=== PATIENT | female | born 1945 | race Caucasian/White ===

== ENCOUNTER → 2016-05-04 | Day surgery (SDC) | payer MEDICARE ==
[~2016-05-04] MED LIST: ACETAMINOPHEN PO; ADVAIR 500-501 EACH; ADVAIR 500-501 EACH IH; ADVAIR 500-501 EACH INH; ADVAIR 5001 DISK W/1 IH; ADVAIR 5001 DISK W/D PO; ADVIL200 M2; ALBUTEROL 0.5ML INH; ALBUTEROL MININEB INH; ALBUTEROL MININEB NEB; ALBUTEROL0.83 MG/ML; ALBUTEROL17 GM INH; ALBUTEROL17 GM PO; ALLERGY RELIEF25 MG PO; AMBIEN PO; AMITIZA24 MCG PO; AMLODIPINE BESYL5 MG PO; ASPIR-TRIN325 MG PO; ASPIRIN PO; ASPIRIN81 M2 PO; ASPIRIN81 MG PO; ASTELIN137 MCG INH; ATORVASTATIN CA40 MG PO; AUGMENTIN PO; AUGMENTIN875 M1 PO; AZITHROMYCIN250 MG PO; B COMPLEX1 TAB PO; B-122500 MCG SL; B-COMPLEX1 TAB PO; BACLOFEN10 MG PO; BD INSULIN; BENADRYL25 MG PO; CEFTIN500 MG PO; CENTRUM PO; CHLORTAB PO; CHLORTABS; CIPRO PO; CLOPIDOGREL75 MG PO; COATED ASPIRIN325 M1 PO; COENZYME Q10; COMBIVENT RESPIM4 GM IH; COMBIVENT14.7 GM INH; COREG3.125 MG PO; COZAAR100 MG PO; CRESTOR40 MG; CRESTOR40 MG PO; D-20002000 UNIT PO; DARVOCET-N 1001 TAB PO; DETROL LA PO; DETROL LA2 MG PO; DITROPAN PO; DITROPAN5 MG; DITROPAN5 MG PO; DOXEPIN HCL100 MG PO; DOXEPIN PO; DOXYCYCLINE HY100 M3 PO; DUONEB 2.5-0.5 M3 ML NEB; ENDOCET 5-3251 EACH PO; FAMOTIDINE PO; FISH OIL 1,2001 CAP; FISH OIL 1,2001 EAC2 PO; FISH OIL 1,2001 EACH PO; FISH OIL300 MG PO; FLAGYL PO; FLAX SEED OIL1000 M1; FLAX SEED OIL1000 M1 PO; FLEXERIL10 MG PO; FLONASE16 GM; FLOVENT DI50 MCG/DIS IH; FUROSEMIDE40 MG PO; GENACOTE325 MG PO; GLUCOPHAGE XR500 MG PO; GLUCOSAMINE &1 EACH PO; GLUCOTROL; HCTZ; HUMALOG MI100 UNIT/5 SQ; HUMALOG MIX 50/10 ML SQ; HUMALOG100 U/M1 SQ; HUMULIN 70/30 V10 ML SUBQ; HUMULIN R100 U/ML SUBQ; HYDROCODON-ACE1 EACH PO; HYDROCODONE-APA1 T41 PO; HYDROCODONE-APA1 T42 PO; HYZAAR 100-12.51 TAB PO; IBUPROFEN800 MG PO; IMDUR-ER30 MG; IMDUR-ER30 MG PO; IMDUR30 MG PO; IPRAT-ALBUT 0.5-3 ML NEB; ISOSORBIDE DINI30 MG PO; ISOSORBIDE MONO30 M1 PO; JANUVIA PO; JANUVIA100 MG PO; K-DUR20 ME1 PO; K-LOR HOSPITAL20 ME1 PO; K-TAB ER20 MEQ PO; KCL PO; KEFLEX PO; KRILL OIL; LASIX PO; LEVAQUIN PO; LEVEMIR100 UNITS/ SUBQ; LIPITOR PO; LIPITOR40 MG PO; LIPITOR80 MG PO; LISINOPRIL PO; LISINOPRIL5 MG PO; LORTAB 5/500 TA1 TA1 PO; LOSARTAN POTAS100 MG; LOTRIMIN 1% CR30 GM; LUTEIN20 MG PO; MEDROL4 MG/DOSE- PO; METFORMIN; METFORMIN HCL1000 M1 PO; METFORMIN HCL500 M2 PO; METFORMIN HCL500 M3 PO; METFORMIN PO; MINERAL OIL HEAV1 ML MC; MONTELUKAST SOD10 MG PO; MULTI VITAMIN1 EACH PO; MULTI-DAY VITAM1 TAB PO; MULTI-VITAMIN1 EAC1 PO; NASONEX17 GM; NEBULIZER1 KI1 MC; NEXIUM; NEXIUM PO; NILSTAT PO; NITROGLYGERIN0.4 MG SL; NITROSTAT0.4 MG SL; NORVASC PO; NORVASC10 MG PO; NOVOLIN 70/30 V10 M1 SQ; NOVOLIN 70/30 V10 ML INJ; NOVOLOG100 U/M1 SQ; NOVOLOG100 U/M1 SUBQ; NOVOLOG100 U/ML; NOVOLOG100 U/ML SUBQ; NOVOLOG100 UNITS/ INJ; NOVOLOG7030; NOVOLOG7030 PO; NOVOLOG7030 SUBQ; NYSTAT-RX8 GM MC; NYSTATIN5 ML MT; NYSTATIN5 ML PO; OMEGA-3 FISH OI1 CA1; OMEGA-3 FISH OI1 CA1 PO; PANTOPRAZOLE SO40 MG PO; PATIENT'S PHARMACY; PERCOCET 5-3251 TAB PO; PERCOCET 5/321 UDTAB PO; PERCOCET5/325 PO; PHYSICIAN; PLAVIX PO; POTASSIUM CHLO10 MEQ PO; PREDNISOLON5 MG/5 M1; PREDNISONE PO; PREDNISONE10 MG PO; PRINIVIL40 MG PO; PRINIVIL5 MG PO; PROAIR HFA8.5 GM; PROAIR HFA8.5 GM IH; PROTONIX PO; PROTONIX20 MG PO; QVAR7.3 GM INH; REQUIP0.5 MG PO; ROBITUSSIN A-C-S1 ML PO; ROBITUSSIN AC PO; ROPINIROLE HCL0.5 MG PO; ROPINIROLE HCL5 MG PO; ROVIN-CF OF TA1 EACH; ROVIN-CF OF TA1 EACH PO; SERTRALINE HCL100 M1 PO; SERTRALINE HCL100 MG PO; SINGULAIR PO; SPIRIVA18 MCG INH; ST. JOSEPH ASP325 MG PO; STOOL SOFTENER100 M1 PO; SULAR; SUPPORT PO; SYMBICORT INH; TEMAZEPAM PO; TEMAZEPAM30 MG PO; TOPROL XL PO; TYLOX 5/500 CAP1 CAP PO; VANTIN200 MG PO; VITAMIN B-12500 MC1 SL; VITAMIN C1000 M2 PO; VITAMIN D-32000 UNI1 PO; VITAMIN D-32000 UNIT PO; VITAMIN D31000 UNI1; VITAMIN D31000 UNI1 PO; VITAMIN D32000 UNI1 PO; VITAMIN D32000 UNIT PO; VITAMIN E1000 UNIT PO; VITAMIN E400 UNI1; VITAMIN E400 UNI1 PO; VITAMIN E400 UNI2 PO; VITAMIN E400 UNI4 PO; ZESTRIL5 MG PO; ZITHROMAX; ZITHROMAX PO; ZITHROMAX600 MG PO; ZOLOFT PO; ZOLOFT100 MG PO; [UNRECOGNIZED DRUG - OTHER]; [UNRECOGNIZED DRUG - OTHER]; [UNRECOGNIZED DRUG - OTHER]; [UNRECOGNIZED DRUG - OTHER] PO; [UNRECOGNIZED DRUG - OTHER] PO; [UNRECOGNIZED DRUG - SUPPLY]
--- NOTE | ~2016-05-04 | OR ---
Unit #: [id number] #: [id number] Patient: ANUP CHENG [id number] [address] [place], [place] [address] [id number] MR#: [id number] NAME: ANUP CHENG ROOM: Date of Procedure: 05/04/2016 Admission Date: 05/04/2016 Surgeon: Jaden Devlin M.D. : 1945 Attending Physician: Jaden Devlin M.D. Primary Care Physician: Jesse Flores M.D. OPERATIVE REPORT PROCEDURES PERFORMED Colonoscopy to cecum and esophagogastroduodenoscopy with biopsies. INDICATIONS FOR PROCEDURE A 70-year-old female with dysphagia and chronic constipation, average risk for colorectal cancer, undergoing evaluation with upper endoscopy and colonoscopy. MEDICATIONS Monitored anesthesia. POSTOPERATIVE FINDINGS 1. Normal esophagus. 2. Chronic appearing gastritis, biopsies taken. 3. Normal duodenum and distal duodenum. 4. Colonoscopy completed to cecum. Prep was poor. Extensive lavaging was done. 5. No polyps, masses, or colitis was seen. PLAN Follow up on the pathology report. Symptomatic treatment for now. DESCRIPTION OF PROCEDURE The patient was explained of the procedure, risks, and benefits along with risks and benefits of anesthesia. She was brought to the endoscopy room. Propofol anesthesia was given. Bite block was placed. The scope was passed down the mouth into the esophagus, stomach, duodenum, and distal duodenum. Findings as described. Biopsies taken. Gently, I pulled the scope out of the patient's mouth. She tolerated it well. At this point, she was turned around and repositioned for colonoscopy. Rectal exam was done, which was normal. Colonoscope was lubricated, passed up the rectum, advanced under direct vision all the way to the cecum. Cecum was identified by ileocecal valve and appendiceal orifice. Prep was poor. Extensive lavaging was done. No polyps, masses, or colitis was seen in the visualized part of the mucosa. I retroflexed in the rectum, small hemorrhoids seen. Scope was gently pulled out. She tolerated it well. Dictated by... Jaden Devlin M.D. Unit #: [id number] #: [id number] Patient: ANUP CHENG SKIsabel/tammy TD: 05/04/2016 22:17 JOB #: [id number] OPERATIVE REPORT X Jaden Devlin MD PROCEDURE OPERATIVE NOTE
== END | disposition home or self-care (01) ==
LOC: COPS 09:29
DX: Z12.11 Encounter for screening for malignant neoplasm of colon (principal); K29.50 Unspecified chronic gastritis without bleeding; K21.0 Gastro-esophageal reflux disease with esophagitis; R13.10 Dysphagia, unspecified; K59.09 Other constipation; E11.9 Type 2 diabetes mellitus without complications; Z79.4 Long term (current) use of insulin; Z79.84 Long term (current) use of oral hypoglycemic drugs; M19.90 Unspecified osteoarthritis, unspecified site; J44.9 Chronic obstructive pulmonary disease, unspecified; I10 Essential (primary) hypertension; I25.10 Atherosclerotic heart disease of native coronary artery without angina pectoris; Z95.5 Presence of coronary angioplasty implant and graft
CPT/HCPCS: 43239; G0121; 82947; 88305; 88312

== ENCOUNTER 2016-05-12 11:44 | Emergency (ER) | payer MEDICARE ==
--- NOTE | ~2016-05-12 | EKG ---
PATIENT: ANUP CHENG UNIT #: [id number] Ventricular Rate: 83 BPM Atrial Rate: 83 BPM P-R Interval: 172 ms QRS Duration: 76 ms Q-T Interval: 378 ms QTC Calculation(Bezet): 444 ms P [place]: 45 degrees Calculated R [place]: -14 degrees Calculated T [place]: 36 degrees Diagnosis Line: Normal sinus rhythm Diagnosis Line: Low voltage QRS Diagnosis Line: Poor R wave progression questionable lead position Diagnosis Line: or body habitus Diagnosis Line: Otherwise normal ECG Diagnosis Line: No previous ECGs available Diagnosis Line: Confirmed by JEFFREY YI MD ([id number]) on 05/12/2016 Diagnosis Line: 4:15:27 PM INTERPRETING MD: KASSIDY LOCKE
--- NOTE | ~2016-05-12 | CR63 ---
[facility] A Service of [facility] RADIOLOGY TEXT RESULTS PATIENT: ANUP CHENG LOCATION: [facility] : [birth year] UNIT #: [id number] AGE: [address]: Ronny Armenta MD SEX: F ORDER DR: [id number] [facility] [address] [place], [place] [address] [id number] E MR#: [id number] Acc #: [id number] NAME: ANUP CHENG. : 1945 SEX: F STUDY DATE/TIME: 05/12/2016 12:54 UNIT: [facility] ROOM: STUDY DESCRIPTION: CR Chest 2 View Attending Physician: Ronny Armenta M.D. Ordering Physician: Ronny Armenta M.D. Primary Care Physician: Jesse Flores M.D. MEDICAL IMAGING REPORT This report is preliminary unless electronic signature is present EXAM Chest 2 views 05/12/2016 1254 hours HISTORY 70-year-old with history of productive cough, midsternal chest pain, shortness of air for 2 days. COMPARISON 03/14/2014 FINDINGS Upright PA and lateral views of the chest demonstrates stable nzdc-ad-joifngeu cardiomegaly and tortuous aorta. There is pulmonary venous distension similar to prior study. There is linear density at the right medial lung base likely atelectasis. No definite pneumonia or edema is seen. There is no pleural effusion. IMPRESSION 1. Stable moderate cardiomegaly with tortuous aorta. 2. There is stable pulmonary venous distension without definite edema. 3. There is linear density at the medial right lung base most likely atelectasis or scar. Dictated by... Cammy Metcalf M.D. THIS IS AN ELECTRONICALLY VERIFIED REPORT Cammy Metcalf M.D. at 05/12/2016 6:58 PM Juan Francisco TD: 05/12/2016 16:49 JOB #: [id number] [facility] A Service of [facility] RADIOLOGY TEXT RESULTS PATIENT: ANUP CHENG LOCATION: [facility] #: [id number] : [birth year] UNIT #: [id number] AGE: [address]: Ronny Armenta MD SEX: F ORDER DR: MEDICAL IMAGING REPORT COPY
[~2016-05-12 11:44] MED LIST changes: -NYSTAT-RX8 GM MC; -SYMBICORT INH
[2016-05-12 11:48] LABS: POC - CKMB <1.0 ng/mL (0.0-7.9); POC - TROPONIN <0.05 ng/mL (<=0.05)
[2016-05-12 11:48] LABS: BASOPHIL# 0.1 X10e3 (0-0.3); BASOPHIL% 1.4 % (0-2.5); EOSINOPHIL# 0.1 X10e3 (0-0.7); EOSINOPHIL% 1.2 % (0.0-7.0); HEMATOCRIT 35.9 % (35.0-45.0); HEMOGLOBIN 11.8 gm/dL (12.0-16.0); LYMPHOCYTE# 1.6 X10e3 (1.0-3.5); LYMPHOCYTE% 21.7 % (17.0-45.0); MEAN CELL VOLUME 86.7 FL (83-96); MEAN CORPUSCULAR HEMOGLOBIN 28.5 PG (28-34); MEAN CORPUSCULAR HGB CONC 32.8 g/dL (30-36); MONOCYTE# 0.7 X10e3 (0-1.0); MONOCYTE% 9.3 % (3.0-12.0); NEUTROPHIL# 4.9 X10e3 (1.5-7.1); NEUTROPHIL% 66.4 % (40-75); RED BLOOD COUNT 4.14 X10e (3.90-5.30); RED CELL DISTRIBUTION WIDTH 15.7 % (11.0-15.5); WHITE BLOOD COUNT 7.5 X10e3 (4.0-10.5)
[2016-05-12 11:54] LABS: INFLUENZA A POS (NEG); INFLUENZA B NEG (NEG)
[2016-05-12 12:09] LABS: PLATELET COUNT 129 X10e3 (140-420)
[2016-05-12 12:10] LABS: DIFF IND NO
[2016-05-12 12:26] LABS: BLOOD UREA NITROGEN 10 mg/dL (9-23); CARBON DIOXIDE 27 mmol/L (22-31); CHLORIDE 103 mmol/L (100-111); CREATININE SERUM 0.8 mg/dL (0.6-1.4); GLOM FILT RATE Estimated ABOVE60 mL/min (>60); GLUCOSE FASTING 212 mg/dL (70-110); POTASSIUM 3.8 mmol/L (3.5-5.1); SODIUM 139 mmol/L (135-145)
== END 2016-05-12 13:55 | disposition home or self-care (01) ==
LOC: CED 11:44
PROVIDERS: Emergency Medicine
DX: J10.1 Influenza due to other identified influenza virus with other respiratory manifestations (principal); E11.9 Type 2 diabetes mellitus without complications; I25.10 Atherosclerotic heart disease of native coronary artery without angina pectoris; I50.9 Heart failure, unspecified; I10 Essential (primary) hypertension; Z79.899 Other long term (current) drug therapy
CPT/HCPCS: 71020; 80048; 82553; 82947; 83880; 84484; 85025; 87804; 93005; 94640; 99284

== ENCOUNTER 2016-05-18 19:47 | Inpatient (IN) | payer MEDICARE ==
--- NOTE | ~2016-05-18 | DS ---
Unit #: [id number] #: [id number] Patient: ANUP CHENG [id number] [address] [address] [id number] I MR#: [id number] NAME: ANUP CHENG. ROOM: 302 Age: 70 Sex: F Admission Date: 05/18/2016 : 1945 Discharge Date: 05/24/2016 Attending Physician: Khurram Connors M.D. Primary Care Physician: Jesse Flores M.D. DISCHARGE SUMMARY DISCHARGE DIAGNOSES 1. Influenza A. 2. Exacerbation of asthma. 3. Diabetes mellitus. 4. Hypertension. 5. Obstructive sleep apnea on CPAP. 6. Coronary artery disease. DISCHARGE MEDICATIONS Glucosamine chondroitin sulfate 3 tablets daily, Amitiza 24 mcg b.i.d., Protonix 40 mg b.i.d., potassium chloride 20 mEq in the evening, isosorbide mononitrate 30 mg daily, Nitrostat 0.4 mg sublingual as directed, B complex vitamin 1 daily, vitamin C 1000 mg daily, lisinopril 10 mg daily note dose increased by 5 mg, Humalog 75/25 subcu b.i.d. on sliding scale. Contact Dr. Flores about results, lutein 20 mg daily, multivitamin one daily, aspirin 325 daily, ibuprofen as needed 600 b.i.d., metformin 500 mg daily, Benadryl 50 mg b.i.d. as needed, ropinirole 0.5 mg q.h.s., Coreg 3.125 mg b.i.d., Symbicort 160/4.5 two puffs b.i.d., albuterol 2 puffs every 4 hours as needed, mineral oil daily, Lasix 40 mg b.i.d., Ditropan 5 t.i.d., Lipitor 40 mg q.h.s., prednisone 20 mg daily x2 days decrease by 5 mg every 2 days until off, vitamin D3 2000 units daily, Cognizin 2000 mg daily, CoQ10 200 mg daily. FOLLOWUP Follow up with Dr. Jesse Flores. HOSPITAL COURSE This is a 70-year-old white female, whom we were called to admit to the hospital. She has been admitted by the [facility] in the past for some reason, the emergency room doctor called us. She has seen Dr. Grayson 2 years ago, but not recently. She says she has not seen because she cannot afford to go to a specialist. We nevertheless she apparently was seen in the emergency room here about a week ago and was said to have the flu and started on Tamiflu. She apparently is very weak and was seen in the clinic and sent to the emergency room, because of high blood sugars. X-ray was read by Radiology and showed a worsening appearance. Cardiac silhouette was enlarged. There is some central thickening. Room air saturation was recorded at 95%. Blood pressure was 98/61, respiratory rate was 85. She was given Solu-Medrol and 500 mL bolus of normal saline and Zithromax. She had cough productive of brownish sputum. We went ahead and admitted the patient, although we had not seen her in 2 years. She was covered with sliding scale insulin. She was started on inhaled bronchodilators, IV Solu-Medrol and covered with antibiotics. Her BMP was Unit #: [id number] #: [id number] Patient: ANUP CHENG. The BNP was 86. Procalcitonin was less than 0.05. Coags were normal[place] [address], hematocrit was 36.3, platelet count was normal. Influenza A was positive on the . She was admitted, treated with inhaled bronchodilators, IV Solu-Medrol, and covered with antibiotics in the form of Rocephin and Zithromax. Followup chest x-ray was done on the and showed mid to lower lung field interstitial infiltrates had cleared since previous exam. Her wheezing has decreased. Her blood sugars remained in the 200s to the low 300s. She has improved and ambulating and eating without difficulty. She will be discharged home on sliding scale insulin per Dr. Ward recommendations in the past, albuterol and Symbicort and a short tapering dose of steroids. She is to follow up with Dr. Flores in 1 week. She is welcome to follow up with Dr. Grayson, but she had not been there in a couple of years because she would just follow up with Dr. Flores. We will be happy to see her for her asthma and/or her obstructive sleep apnea. Dictated by... Courtney Grimaldo/tammy TD: 05/25/2016 04:49 JOB #: [id number] DISCHARGE SUMMARY Page 1 of 1 X Khurram Connors MD DISCHARGE SUMMARY
--- NOTE | ~2016-05-18 | CR63 ---
[facility] A Service of [facility] RADIOLOGY TEXT RESULTS PATIENT: ANUP CHENG LOCATION: [facility] : 45 UNIT #: [id number] AGE: [address]: Khurram Connors MD SEX: F ORDER DR: [id number] [facility] [address] [place], [place] [address] [id number] I MR#: [id number] Acc #: [id number] NAME: ANUP CHENG : 1945 SEX: F STUDY DATE/TIME: 05/20/2016 7:40 UNIT: [address] ROOM: [facility] STUDY DESCRIPTION: CR Chest 2 View Attending Physician: Khurram Connors M.D. Ordering Physician: Khurram Connors M.D. Primary Care Physician: Jesse Flores M.D. MEDICAL IMAGING REPORT This report is preliminary unless electronic signature is present EXAM Chest x-ray HISTORY Shortness of breath, cough and congestion over the past week. TECHNIQUE 2 views of the chest were obtained. COMPARISON 05/18/2016 FINDINGS The heart and mediastinum are stable with mild cardiomegaly noted. The lungs show improved aeration since the previous examination with diffuse fxm-ns-kiyoa lung field interstitial infiltrates resolving. No pleural fluid is seen. No new infiltrates are noted. IMPRESSION Suo-rp-rgyxt lung field interstitial infiltrates have cleared since the previous exam. No new infiltrates are seen. Dictated by... Ronny Cheatham M.D. THIS IS AN ELECTRONICALLY VERIFIED REPORT Ronny Cheatham M.D. at 05/20/2016 10:45 AM TAMIA/manisha TD: 05/20/2016 09:19 JOB #: [id number] MEDICAL IMAGING REPORT [facility] A Service of [facility] RADIOLOGY TEXT RESULTS PATIENT: ANUP CHENG LOCATION: [facility] : 45 UNIT #: [id number] AGE: [address]: Khurram Connors MD SEX: F ORDER DR: Page 1 of 1 COPY
--- NOTE | ~2016-05-18 | HP ---
Unit #: [id number] #: [id number] Patient: ANUP CHENG [id number] [address] [place], [place] [address] [id number] I MR#: [id number] NAME: ANUP CHENG. ROOM: 302 Age: 70 Sex: F Admission Date: 05/18/2016 : 1945 Attending Physician: Khurram Connors M.D. Primary Care Physician: Jesse Flores M.D. HISTORY AND PHYSICAL HISTORY OF PRESENT ILLNESS Ms. Cheng is a 70-year-old white female whom we were apparently called to admit to the hospital. She has been followed by [facility] on previous hospitalizations. She has not been seen in our office for over two years but she has seen Dr. Grayson in the past. Nevertheless, she apparently was seen in the emergency room here about a week ago and was said to have the flu and started on Tamiflu. She has felt very weak since then. She was apparently seen in the clinic and sent to the emergency room because of high blood sugars. Chest x-ray was read by Radiology and gave a rather long narrative but they stated there was probably worsening in the appearance of the chest x-ray since the film of 05/12/2016. Cardiac silhouette is enlarged. There is possibly some thickening of the central bronchovascular soft tissues and abnormal interstitial markings diffusely with worsening patchy airspace disease in the perihilar lung base region. Hence, we were called for admission. Room air O2 saturation was recorded in the emergency room at 95%, blood pressure was 98/62, respiratory rate was 85, temperature was 97.7. She was given Solu-Medrol 125 mg IV, a 500 mL bolus of normal saline, 2 grams of Rocephin and 500 mg of Zithromax. She has had cough productive of brownish sputum, no hemoptysis. She has chest pain when she coughs. No radiation of chest pain. She has had a little nausea, no vomiting. She has had no hematuria or dysuria. PAST MEDICAL HISTORY Significant for: 1. Asthma. 2. Adult-onset diabetes mellitus. 3. Hypertension. 4. Coronary artery disease. 5. History of E coli sepsis secondary to cholecystitis requiring cholecystectomy. 6. History of obstructive sleep apnea on CPAP. She has been unable to wear it over the last week due to her illness. 7. History of chronic back pain. 8. Anxiety depression. 9. GERD. 10. History of MRSA bronchitis requiring bronchoscopy in 2006. 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 12. Left total knee. 13. Umbilical hernia repair. 14. Tonsillectomy and adenoidectomy. 15. Cataract extraction. HOME MEDICATIONS Unit #: [id number] #: [id number] Patient: ANUP CHENG The list is quite lengthy and include: 1. Lipitor. 2. Albuterol. 3. Coreg. 4. Lasix. 5. Humalog 75/25. 6. Isosorbide mononitrate. 7. Zestril. 8. Metformin. 9. Nitrostat. 10. Ditropan. 11. Protonix. 12. Ropinirole. 13. Potassium. 14. Aspirin. 15. Cognizin. 16. Vitamin D3. 17. B-complex vitamins. 18. Vitamin C. 19. Lutein. 20. Amitiza. 21. CoQ-10 in krill oil. 22. Allergy Relief. 23. Glucosamine chondroitin sulfate. 24. Multivitamins. 25. Mineral oil. 26. Advil. ALLERGIES No known allergies. SOCIAL HISTORY Nonsmoker for over 35 years. No alcohol. Lives with grandson and . FAMILY HISTORY Hypertension, diabetes, coronary artery disease. REVIEW OF SYSTEMS A 10-point system otherwise negative other than mentioned above. PHYSICAL EXAMINATION VITAL SIGNS: Blood pressure 144/95, pulse 92, respiratory rate 19, afebrile. HEENT: Normocephalic, atraumatic. Pupils equal, round, reactive. Sclerae anicteric. Posterior pharynx crowded, Mallampati class III to IV. NECK: Supple. Trachea midline. No cervical or supraclavicular lymphadenopathy. BACK: Some kyphoscoliosis. LUNGS: Inspiratory squeaks and mild expiratory wheeze. HEART: Regular rate and rhythm. Could not appreciate murmur, rub or gallop. ABDOMEN: Protuberant. Nontender. Bowel sounds are present. No hepatosplenomegaly. EXTREMITIES: Without clubbing, cyanosis, or edema. NEUROLOGIC: Awake, oriented x3. Cranial nerves grossly intact. Muscle strength symmetric. PSYCHIATRIC: Affect calm. SKIN: Warm and dry. No swollen joints. Unit #: [id number] #: [id number] Patient: ANUP CHENG DIAGNOSTIC STUDIES LABORATORY: Chemistries are reviewed. Glucose 409, sodium 132, creatinine 0.7. BNP 86. Coags normal. White count 12,000, hematocrit 36.3, platelet count normal. Influenza A was positive on 05/12/2016. IMAGING: Chest x-ray personally reviewed. Possibly some mild increased interstitial marking. There is some silhouetting of the left hemidiaphragm. IMPRESSION 1. Asthma exacerbation. 2. Flu A, status post treatment. 3. Diabetes mellitus. 4. Hypertension. 5. Obstructive sleep apnea on CPAP. 6. Coronary artery disease. PLAN 1. Will treat asthma with inhaled bronchodilators, IV Solu-Medrol, cover with antibiotics for possible pneumonia. 2. Obtain good PA and lateral chest x-ray to see if there actually is a pneumonia or if the x-ray reading is related to artifact. 3. Will check procalcitonin level. 4. Will cover with sliding scale insulin for diabetes. 5. Continue CPAP. 6. DVT prophylaxis. 7. Further recommendations pending this. Dictated by Khurram Connors M.D. SHA/storm TD: 05/19/2016 15:49 JOB #: [id number] HISTORY AND PHYSICAL Page 1 of 1 X Khurram Connors MD X HISTORY AND PHYSICAL
--- NOTE | ~2016-05-18 | CR72 ---
[facility] A Service of [facility] & [facility] RADIOLOGY TEXT RESULTS PATIENT: ANUP CHENG LOCATION: [facility] - : 45 UNIT #: [id number] AGE: [address]: Khurram Connors MD SEX: F ORDER DR: [id number] [facility] [address] [place], [place] [address] [id number] I MR#: [id number] Acc #: [id number] NAME: ANUP CHENG. : 1945 SEX: F STUDY DATE/TIME: 05/18/2016 19:58 UNIT: [address] ROOM: [facility] STUDY DESCRIPTION: CR Chest Single View Portable Attending Physician: Khurram Connors M.D. Ordering Physician: Cristian Nowak D.O. Primary Care Physician: Jesse Flores M.D. MEDICAL IMAGING REPORT This report is preliminary unless electronic signature is present EXAM Chest x-ray, single view portable, 05/18/2016 HISTORY Wheezing, asthma, short of air started today. High blood sugar. COMMENT Single frontal portable view of the chest timed 19:58 on 05/18/2016 compared to 05/12/2016. There is mild to moderate cardiac silhouette enlargement similar to previous. There is abnormal appearance to the lung parenchyma with abnormal interstitial markings, abnormal thickening of the central peribronchovascular soft tissues and central to basilar airspace disease. This is probably worse with some increasing airspace disease at the bases. No pleural effusion or pneumothorax. Arthritis at the shoulders. IMPRESSION Probably some worsening in the appearance of the chest since the film of 05/12/2016. There is still cardiac silhouette enlargement and thickening of the central peribronchovascular soft tissues and abnormal interstitial markings diffusely but I believe there is worsening patchy airspace disease perihilar lung base region. Clinical correlation and followup to complete resolution recommended. Please correlate for clinical concern for aspiration or pneumonia. A component of patchy pulmonary edema is possible but felt less likely. Dictated by... Tamra Guzman M.D. [facility] A Service of [facility] & [facility] RADIOLOGY TEXT RESULTS PATIENT: ANUP CHENG LOCATION: [facility] 302-01 : [birth year] UNIT #: [id number] AGE: [address]: Khurram Connors MD SEX: F ORDER DR: THIS IS AN ELECTRONICALLY VERIFIED REPORT Tamra Guzman M.D. at 05/19/2016 12:19 PM KAMILAH/tere TD: 05/19/2016 11:34 JOB #: [id number] MEDICAL IMAGING REPORT Page 1 of 1 COPY
--- NOTE | ~2016-05-18 | EKG ---
PATIENT: ANUP CHENG UNIT #: [id number] Ventricular Rate: 78 BPM Atrial Rate: 84 BPM P-R Interval: 156 ms QRS Duration: 76 ms Q-T Interval: 428 ms QTC Calculation(Bezet): 487 ms P [place]: 42 degrees Calculated R [place]: 1 degrees Calculated T [place]: 26 degrees Diagnosis Line: Sinus rhythm with Premature atrial complexes Diagnosis Line: Prolonged QT Diagnosis Line: Abnormal ECG Diagnosis Line: When compared with ECG of 12-MAY-2016 11:13, Diagnosis Line: Premature atrial complexes are now Present Diagnosis Line: Confirmed by JEFFREY YI MD ([id number]) on 05/20/2016 Diagnosis Line: 9:16:50 AM INTERPRETING MD: KASSIDY LOCKE
[2016-05-18 20:48] LABS: BASOPHIL% 0.2 % (0-2.5); EOSINOPHIL# 0.2 X10e3 (0-0.7); EOSINOPHIL% 1.4 % (0.0-7.0); HEMATOCRIT 38.9 % (35.0-45.0); HEMOGLOBIN 12.8 gm/dL (12.0-16.0); LYMPHOCYTE# 3.3 X10e3 (1.0-3.5); LYMPHOCYTE% 24.8 % (17.0-45.0); MEAN CELL VOLUME 84.4 FL (83-96); MEAN CORPUSCULAR HEMOGLOBIN 27.7 PG (28-34); MEAN CORPUSCULAR HGB CONC 32.9 g/dL (30-36); MEAN PLATELET VOLUME 8.8 FL (6.5-11.5); MONOCYTE# 0.9 X10e3 (0-1.0); MONOCYTE% 7.2 % (3.0-12.0); NEUTROPHIL# 8.8 X10e3 (1.5-7.1); NEUTROPHIL% 66.4 % (40-75); PLATELET COUNT 316 X10e3 (140-420); RED BLOOD COUNT 4.61 X10e (3.90-5.30); RED CELL DISTRIBUTION WIDTH 15.1 % (11.0-15.5); WHITE BLOOD COUNT 13.2 X10e3 (4.0-10.5)
[2016-05-18 20:49] LABS: DIFF IND NO
[2016-05-18 21:07] LABS: ALBUMIN SERUM 3.2 g/dL (3.5-5.0); ALKALINE PHOSPHATASE 76 U/L (32-92); ALT (SGPT) 19 U/L (10-40); AST (SGOT) 19 U/L (10-42); BILIRUBIN, DIRECT 0.1 mg/dL (0.0-0.2); BILIRUBIN,INDIRECT 0.5 mg/dL (0.0-0.9); BILIRUBIN,TOTAL 0.6 mg/dL (0.2-2.0); BLOOD UREA NITROGEN 20 mg/dL (9-23); BUN/CREATININE RATIO 33.33; CALCIUM SERUM 10.7 mg/dL (8.4-10.2); CARBON DIOXIDE 28 mmol/L (22-31); CHLORIDE 99 mmol/L (100-111); CREATININE SERUM 0.6 mg/dL (0.6-1.4); GLOM FILT RATE Estimated ABOVE60 mL/min (>60); GLUCOSE FASTING 133 mg/dL (70-110); POTASSIUM 3.4 mmol/L (3.5-5.1); PROTEIN TOTAL SERUM 6.4 g/dL (6.0-8.3); SODIUM 139 mmol/L (135-145)
[2016-05-18 21:35] LABS: PARTIAL THROMBOPLASTIN TIME 26.8 SECONDS (23.5-31.3); PROTHROMBIN TIME (PATIENT) 10.5 SECONDS (9.6-11.5)
[2016-05-18 22:29] LABS: POC - CKMB 1.5 ng/mL (0.0-7.9); POC - TROPONIN <0.05 ng/mL (<=0.05)
[2016-05-18 23:10] LABS: POC - CKMB <1.0 ng/mL (0.0-7.9); POC - TROPONIN <0.05 ng/mL (<=0.05)
[2016-05-18 23:41] LABS: POC - CKMB 1.2 ng/mL (0.0-7.9); POC - TROPONIN <0.05 ng/mL (<=0.05)
[2016-05-19 10:22] LABS: BASOPHIL% 0.1 % (0-2.5); EOSINOPHIL% 0.2 % (0.0-7.0); HEMATOCRIT 36.3 % (35.0-45.0); HEMOGLOBIN 11.8 gm/dL (12.0-16.0); LYMPHOCYTE# 2.1 X10e3 (1.0-3.5); LYMPHOCYTE% 17.3 % (17.0-45.0); MEAN CELL VOLUME 85.1 FL (83-96); MEAN CORPUSCULAR HEMOGLOBIN 27.7 PG (28-34); MEAN CORPUSCULAR HGB CONC 32.5 g/dL (30-36); MEAN PLATELET VOLUME 8.9 FL (6.5-11.5); MONOCYTE# 0.7 X10e3 (0-1.0); MONOCYTE% 6.1 % (3.0-12.0); NEUTROPHIL# 9.2 X10e3 (1.5-7.1); NEUTROPHIL% 76.3 % (40-75); PLATELET COUNT 275 X10e3 (140-420); RED BLOOD COUNT 4.26 X10e (3.90-5.30); RED CELL DISTRIBUTION WIDTH 15.2 % (11.0-15.5)
[2016-05-19 10:23] LABS: DIFF IND YES
[2016-05-19 10:46] LABS: BLOOD UREA NITROGEN 21 mg/dL (9-23); CALCIUM SERUM 9.6 mg/dL (8.4-10.2); CARBON DIOXIDE 26 mmol/L (22-31); CHLORIDE 98 mmol/L (100-111); CREATININE SERUM 0.7 mg/dL (0.6-1.4); GLOM FILT RATE Estimated ABOVE60 mL/min (>60); GLUCOSE FASTING 409 mg/dL (70-110); POTASSIUM 3.7 mmol/L (3.5-5.1); SODIUM 132 mmol/L (135-145)
[2016-05-19 11:25] LABS: PLATELET ESTIMATE NORMAL (NORMAL)
[2016-05-24] MEDS ORDERED: PREDNISONE PO (14:39)
[2016-05-24] MEDS ORDERED: SYMBICORT INH (14:39)
[2016-05-24] MEDS ORDERED: ALBUTEROL17 GM INH (14:39)
[2016-05-24] MEDS ORDERED: NYSTAT-RX8 GM MC (14:40)
[2016-05-24] MEDS ORDERED: NYSTATIN5 ML PO (14:40)
== END 2016-05-24 16:20 | disposition home or self-care (01) | DRG 191 ==
LOC: CED 19:47 → CEDOF 22:15 → C3A PCU 05-19 00:50
PROVIDERS: Emergency Medicine; Internal Medicine
DX: J44.1 Chronic obstructive pulmonary disease with (acute) exacerbation (principal); J45.901 Unspecified asthma with (acute) exacerbation; E11.9 Type 2 diabetes mellitus without complications; J10.1 Influenza due to other identified influenza virus with other respiratory manifestations; I10 Essential (primary) hypertension; G47.33 Obstructive sleep apnea (adult) (pediatric); I25.10 Atherosclerotic heart disease of native coronary artery without angina pectoris; F41.9 Anxiety disorder, unspecified; F32.9 Major depressive disorder, single episode, unspecified; K21.9 Gastro-esophageal reflux disease without esophagitis; Z86.14 Personal history of Methicillin resistant Staphylococcus aureus infection; Z96.652 Presence of left artificial knee joint; Z98.49 Cataract extraction status, unspecified eye; Z79.82 Long term (current) use of aspirin; Z79.4 Long term (current) use of insulin
CPT/HCPCS: 36415; 71010; 71020; 80048; 80076; 82308; 82553; 82947; 83880; 84484; 85025; 85610; 85730; 87040; 93005; 94640; 94664; 94760; 96374; 99285; J0456; J0696; J1650; J1815; J2930